=== PATIENT | male | born 1950 | race Caucasian/White ===

== ENCOUNTER 2022-05-14 05:51 | Observation (INO) ==
--- NOTE | 2022-03-19 15:28 | PAT Medication Instructions ---
Medication Instructions Date of Service March 19, 2022 Home Medications Medication Instructions Recorded atorvastatin 40 mg tablet 40 mg PO QAM 34 Days #34 tab 09/04/20 aspirin 81 mg chewable tablet 81 mg PO QAM atorvastatin 40 mg tablet 40 mg PO QAM cholecalciferol (vitamin D3) 25 mcg (1,000 unit) capsule (Vitamin D3) 25 mcg PO QAM vitamin B complex 1 tab PO QAM clopidogrel 75 mg tablet 75 mg PO QAM metoprolol succinate 25 mg tablet,extended release 24 hr 50 mg PO QAM nitroglycerin 0.4 mg sublingual tablet (Nitrostat) 0.4 mg SUBLINGUAL UD PRN Continue as directed nitroglycerin 0.4 mg sublingual tablet (Nitrostat) 0.4 mg SUBLINGUAL UD PRN (if needed) ASK your prescriber and surgeon clopidogrel 75 mg tablet 75 mg PO QAM (in order for spinal anesthesia, clopidogrel needs to be stopped 7 days before surgery. Please check if okay with doctor that prescribes this to you) DO NOT take the morning of surgery cholecalciferol (vitamin D3) 25 mcg (1,000 unit) capsule (Vitamin D3) 25 mcg PO QAM vitamin B complex 1 tab PO QAM Take morning of surgery With a small sip of water, OTHERWISE NOTHING TO EAT OR DRINK AFTER MIDNIGHT: aspirin 81 mg chewable tablet 81 mg PO QAM (continue as normal unless told otherwise by surgeon) atorvastatin 40 mg tablet 40 mg PO QAM metoprolol succinate 25 mg tablet,extended release 24 hr 50 mg PO QAM Other Notes If you have any questions please call us at [phone] or [phone] or [phone] or [phone]
--- NOTE | 2022-04-07 14:45 | Anesthesiology Consultation ---
Date of Service April 07, 2022 Assessment & Plan (1) Encounter for pre-operative examination: Chart Review Chart Review: Acceptable Risk for Surgery (pending cardio (04/14) and PCP (05/01) clearance and preop Covid testing results ) and Patient seen in Pre Admission Testing - Awaiting cardiac clearance (04/14/22) and PCP clearance (05/01/22) Per [facility] appt on 04/07/22, patient denies any recent travel or large group activities. Pt did test Covid positive with a home test 03/23/22 (had headache and sore throat- symptoms have since resolved). Pt is vaccinated for Covid. Did do PCR Covid test at [facility] appt on 04/08/22 due to positive home test on 03/23/22- patient Covid positive. Surgery scheduled for >30 days from Covid positive test but will be within 90 days- per protocol- no additional preop Covid test or Covid contact precautions are needed (patient and surgeon office made aware). Educated on importance of self quarantining, social distancing and wearing mask in public for the patient one week prior to surgery and after Covid testing done Pt seen by vascular surgery 12/24/21= seen for follow up- s/p R-TCAR as well as RCCA stent (transfemoral) 11/2020. Pt doing well. Recent duplex acceptable. No TIA/CVA symtpoms. Continue ASA and Plavix (extensive right carotid stenting). Follow up in one year Teaching & Discussion Pre-Anesthesia Teaching/Discussion Notes: Instructed NPO after midnight before surgery,except medications with 15 cc of water. Medication instructions provided according to the [facility] guidelines. History Surgery Operation Date: 05/14/22 08:00 Proposed Procedures p Left Total Knee Arthroplasty - Sabas Schroeder DO Height/Weight Height: 6 ft Weight: 96.1 kg Allergies Allergy/AdvReac Type Severity Reaction Status Date / Time Penicillins Allergy Unknown Unknown Verified 03/14/22 14:17 Medications Home Medications Medication Instructions Recorded Confirmed Last Taken aspirin 81 mg chewable tablet 81 mg PO QAM 09/04/20 03/14/22 09/04/20 324 atorvastatin 40 mg tablet 40 mg PO QAM 34 days #34 tabs 09/04/20 03/14/22 Unknown cholecalciferol (vitamin D3) 25 25 mcg PO QAM 09/04/20 03/14/22 Unknown mcg (1,000 unit) capsule (Vitamin D3) vitamin B complex 1 tab PO QAM 09/04/20 03/14/22 Unknown clopidogrel 75 mg tablet 75 mg PO QA 03/14/22 03/14/22 Unknown metoprolol succinate 25 mg 50 mg PO QAM 03/14/22 03/14/22 Unknown tablet,extended release 24 hr nitroglycerin 0.4 mg sublingual 0.4 mg sublingual UD PRN Chest Pain 03/14/22 03/14/22 Unknown tablet (Nitrostat) Past Medical History Medical History (Updated 04/07/22 @ 15:21 by Afua Mcclain PA-C) Anemia CAD (coronary artery disease) S/p 3 vessel CABG 09/21/2020, follows with [facility] cardio Carotid artery stenosis S/p R carotid stent 11/2020 (R-TCAR as well as RCCA stent (transfemoral)) 12/06/20- follows with [facility] Vascular Surgery; < 50% stenosis bilat 12/24/21 duplex History of high cholesterol HTN (hypertension) Exercise / Class Metabolic Activity II 4-5 Yardwork/Stairs/Walk up hill (one flight of stairs- no chest pain or SOB ) Past Family History Family History Mother Family history of diabetes mellitus Past Surgical History Surgical History (Updated 04/07/22 @ 15:21 by Afua Mcclain PA-C) History of cardiac cath JUL/AUG 2021...NO STENT(S), BYPASS SX History of colonoscopy History of heart bypass surgery triple, 09/2020, TOLBERT to LAD, SVG to OM1, SVG to RPL History of vascular surgery R-TCAR as well as RCCA stent (transfemoral) November 2020 Past Anesthesia History No Hx of Anesthesia Complications and No Family Hx of Anesthesia Complications History of PONV No Hx of PONV and No Hx of Motion Sickness Social History Smoking Status: Never smoker Do You Dip or Chew Tobacco: No (HX, QUIT 2019) Hx Alcohol Use: Yes Alcohol type: beer alcohol intake frequency: a few times a week Hx Substance Use: No substance use type: does not use Review of Systems Hx of snoring - no hx of sleep study Patient denies chest pain, shortness of breath, dyspnea on exertion, reflux, cough, wheezing, palpitations. No hx of seizures, stroke, [place]. No hx of blood clots or blood transfusions Physical Exam Vital Signs VITALS BP 138/78 P 75 TEMP 98.1 SP02 95% RESP 16 Constitutional no acute distress ENMT Mouth: + small oral opening; no TMJ clicking Thyromental Distance: < 3.5 Finger Breadths (3.0) Mallampati Class: II Neck neck extension not limited Respiratory normal respiratory effort; no respiratory distress Auscultation: lungs clear to auscultation bilaterally; no wheezes Cardiovascular Rate/Rhythm: regular rate and regular rhythm Heart Sounds: no murmur Vessels: no carotid bruit Heart sounds mildly diminished throughout Musculoskeletal Spine: no pain with cervical ROM Extremities: extremities normal to inspection Psychiatric Orientation: alert Lab Results Anesthesia Preop Results Results Anesthesia Widget: WBC 5.89 K/ul (4.8-10.8) 04/07/22 Hgb 13.7 g/dl (14.0-18.0) L 04/07/22 Hct 42.1 % (40.1-51.0) 04/07/22 Plt 190 K/uL (130-400) 04/07/22 Na 141 mmol/L (136-145) 04/07/22 K 4.1 mmol/L (3.5-5.1) 04/07/22 Cl 109 mmol/L (98-107) H 04/07/22 CO2 28 mmol/L (21-32) 04/07/22 BUN 21 mg/dl (6-23) 04/07/22 Creat 0.84 mg/dl (0.6-1.4) 04/07/22 Glucose Level 92 mg/dl (70-99(Fasting)) 04/07/22 PT 10.8 Seconds (9.0-12.0) 04/07/22 PTT 24.8 Seconds (21.0-31.0) 04/07/22 INR 1.0 (0.9-1.1) 04/07/22 HA1c 5.5 % (4.5-5.6) 04/07/22 Urine Color Yellow 04/07/22 Urine Appearance Clear (Clear) 04/07/22 Urine pH 5.5 (4.5-7.5) 04/07/22 Urine Specific [place] 1.024 (1.000-1.030) 04/07/22 Urine Protein Negative (Negative) 04/07/22 Urine Glucose (UA) Negative (Negative) 04/07/22 Urine Ketones Negative (Negative) 04/07/22 Urine Blood Negative (Negative) 04/07/22 Urine Nitrite Negative (Negative) 04/07/22 Urine Bilirubin Negative (Negative) 04/07/22 Urine Urobilinogen Negative (Negative) 04/07/22 Urine Leukocyte Esterase Negative (Negative) 04/07/22 Blood Type B Negative 04/07/22 Antibody Screen NEGATIVE 04/07/22 Testing Electrocardiogram Date: 04/07/22 Findings: + NSR @ (72bpm ) Normal EKG per cardio. Chest X-Ray Date: 04/07/22 Findings: + NAD Echocardiogram Date: 09/21/20 EF: 60-64% LV Function: normal RWMA: + none Other Findings: no LVH Aortic root mildly enlarged Aortic atherosclerosis is moderate Mild MR. Mild TR. Mild IA. Stress Test Date: 08/16/20 Type: exercise (ECHO ) Resting EF: 55-59% Resting LV Function: normal Valvular Disease: no significant valvular disease Echo is positive for inducible ischemia. LV wall motion is normal at rest. MPHR 101%. 9 METS achieved. Small sized apical wall motion abnormality with hypokinesis of the apical segments postexercise. Findings suggest ischemia in the distal LAD territory or perhaps distal RCA territory. Grade 1 DD. (Pt had subsequent cardiac cath- see below) Cardiac Catheterization Date: 09/04/20 Coronary Anatomy Dominant: Right Left Main (% Stenosis): Distal (10%) LAD (% Stenosis): Proximal (80%), Mid (60% diffuse disease extending to D3) and Distal (30%) D1 (% Stenosis): Normal (small vessel with mild diffuse disease) D2 (% Stenosis): Ostial (50%) D3 (% Stenosis): Ostial (10%) OM1 (% Stenosis): Normal OM2 (% Stenosis): Proximal (80%) and Mid (90%) L PL1 (% Stenosis): Mid (90% early-mid) RCA (% Stenosis): Proximal (20-30% diffuse), Mid (80%) and Distal (30-40% diffuse) R PDA (% Stenosis): Mid (70% mid, small vessel) R PL1 (% Stenosis): Normal (Pt had subsequent 3 vessel CABG) Other Testing Carotid testing 12/24/21= <50% stenosis to bilateral ICAs. Antegrade flow to both vertebral arteries
--- NOTE | 2022-04-18 08:40 | History & Physical Report ---
Date of Service April 18, 2022 date of surgery: 05/14/22 Procedure: Left Total Knee Arthroplasty Surgeon: Sabas Schroeder Assessment & Plan (1) Arthritis of knee, left: Plan: Presents for evaluation of continued left knee pain. He has failed previous conservative measures including cortisone injections as well as multiple Visco injections, he does limit his NSAID use due to being on aspirin and Plavix. He did have a history of cardiac bypass surgery as well as carotid endarterectomy. We discussed options, is felt conservative measures like to proceed with a Veronica patient-matched left total knee replacement at [facility], he is not a outpatient joint candidate. We will need cardiac clearance from Dr. Reeves prior to his surgery, we will plan on in-home therapy for first 2 weeks after surgery. The risks and benefits have been discussed including, but not limited to, risk of infection, nerve injury, stiffness, loss of motion, failure to improve, etc. Reasonable outcomes and options of treatment were discussed. An explanation of appropriate alternatives to the procedure that may be advantageous were discussed and their risks and benefits, as well as the risks and benefits of not proceeding with treatment. I offered to answer any additional inquiries concerning the treatment involved. All the patient's questions were answered. The patient is agreeable, understanding of the treatment plan and alternatives, and wishes to proceed with the treatment plan. History of Present Illness Chief Complaint: left knee pain Primary Care Provider: Lincoln Azevedo MD Mr Aguiar is a pleasant 71-year-old male presents for preop valuation prior to left total knee replacement. He is having pain in this knee for many years now which is gradually worsened, is now affecting his daily activities including walking standing going up and on steps. He has tried previous cortisone injection as well as viscosupplementation without relief. He tried oral anti- inflammatories and Tylenol. This point time is failed conservative measures like proceed with left total knee replacement Allergies Allergy/AdvReac Type Severity Reaction Status Date / Time Penicillins Allergy Unknown Unknown Verified 03/14/22 14:17 Home Medications Medication Instructions Recorded Confirmed Type aspirin 81 mg chewable tablet 81 mg PO QAM 09/04/20 03/14/22 History atorvastatin 40 mg tablet 40 mg PO QAM 34 days #34 tabs 09/04/20 03/14/22 Rx cholecalciferol (vitamin D3) 25 25 mcg PO QAM 09/04/20 03/14/22 History mcg (1,000 unit) capsule (Vitamin D3) vitamin B complex 1 tab PO QAM 09/04/20 03/14/22 History clopidogrel 75 mg tablet 75 mg PO QAM 03/14/22 03/14/22 History metoprolol succinate 25 mg 50 mg PO QAM 03/14/22 03/14/22 History tablet,extended release 24 hr nitroglycerin 0.4 mg sublingual 0.4 mg sublingual UD PRN Chest Pain 03/14/22 03/14/22 History tablet (Nitrostat) Past Med/Surg History Medical History Anemia CAD (coronary artery disease) S/p 3 vessel CABG 09/21/2020, follows with [facility] cardio Carotid artery stenosis S/p R carotid stent 11/2020 (R-TCAR as well as RCCA stent (transfemoral)) 12/06/20- follows with [facility] Vascular Surgery; < 50% stenosis bilat 12/24/21 duplex History of high cholesterol HTN (hypertension) Surgical History History of cardiac cath JUL/AUG 2021...NO STENT(S), BYPASS SX History of colonoscopy History of heart bypass surgery triple, 09/2020, TOLBERT to LAD, SVG to OM1, SVG to RPL History of vascular surgery R-TCAR as well as RCCA stent (transfemoral) November 2020 Family History Mother Family history of diabetes mellitus Social History Smoking Status: Never smoker Hx Alcohol Use: Yes Alcohol type: beer Hx Substance Use: No Preferred Language: Divehi Communication Ability: Effective Rigging Engineer Required: No Beliefs That Will Affect Care: None Current Living Situation: Spouse Feels Safe at Home: Yes Assistive Devices: Glasses Review of Systems Review of Systems: All systems reviewed & are unremarkable except as noted in HPI & below Constitutional: no fever, no chills and no sweats Respiratory: no cough and no dyspnea Cardiovascular: no chest pain, no dyspnea and no orthopnea Gastrointestinal: no abdominal pain, no nausea and no vomiting Musculoskeletal: as per Subjective / HPI Physical Exam Physical Exam: HT: 6ft WT: 96.1kg Constitutional: WD/WN, vitals as above no acute distress Respiratory: normal respiratory effort, lungs clear to auscultation no respiratory distress, no labored breathing and does not use accessory muscles Cardiovascular: RRR, no murmur, no edema Gastrointestinal (Abdomen): normal bowel sounds, soft, nontender, no hepatosplenomegaly Musculoskeletal: Knee: + knee abnormal to inspection (LEFT KNEE), + effusion (+1 effusion), + limited ROM of knee (ROM 0/3/110), + knee ROM with crepitation, + joint line tenderness (medial joint line) and + Freddie's sign positive; no deformity, no skin erythema, no ecchymosis, no valgus laxity, no varus laxity, anterior drawer test negative, Abraham's sign negative and pivot shift test negative Results & Data Results & Data ([facility]) Diagnostic Findings Left Knee X-ray: left knee series confirm advanced degenerative changes to the left knee, greatest medial compartments and patellofemoral joint, showing joint space narrowing, osteophyte formation and subchondral sclerosis. no acute bony pathology noted.
[2022-05-14] MEDS ORDERED: CeleBREX 200 MG CAP PO SCH (06:00)
[2022-05-14] MEDS ORDERED: TRANEXAMIC ACID / 0.7% NACL 1,000 MG/100 ML BAG IV SCH (06:00)
[2022-05-14] MEDS ORDERED: ROPIVACAINE 0.5% HCL/PF 150 MG, BUPIVACAINE 0.75% MPF 20 ML, EPINEPHrine 30MG/30ML (OR ... INSTIL SCH (06:00)
[2022-05-14] MEDS ORDERED: METOCLOPRAMIDE HCL 10 MG TABLET PO SCH (06:00)
[2022-05-14] MEDS ORDERED: FAMOTIDINE 20 MG TAB PO SCH (06:00)
[2022-05-14] MEDS ORDERED: ACETAMINOPHEN 500 MG TAB PO SCH (06:00)
[2022-05-14] MEDS ORDERED: GABAPENTIN 300 MG CAP PO SCH (06:00)
[2022-05-14] MEDS ORDERED: dexAMETHasone 4 MG TAB PO SCH (06:00)
[2022-05-14] MEDS ORDERED: TRANEXAMIC ACID 1,000 MG **IV Intra-op IV SCH (06:00)
[2022-05-14] MEDS ORDERED: VANCOMYCIN HCL 1,500 MG in SODIUM CHLORIDE 0.9% 500 ML IV SCH (06:00)
[2022-05-14] MEDS ORDERED: LR 500ML BOLUS, THEN 15ML/HR IV SCH (06:00)
[2022-05-14] MEDS ORDERED: BUPIVACAINE 0.5 % 5 MG/1 ML PF 10ML VIAL ONE (06:27)
[2022-05-14] MEDS ORDERED: ROPIVACAINE 0.5% 5 MG/ML 30 ML VIAL ONE (06:27)
[2022-05-14] MEDS ORDERED: TRANEXAMIC ACID / 0.7% NACL 1000MG/100ML BAG IV ONE (07:09)
--- NOTE | 2022-05-14 07:11 | History & Physical Bridge Note ---
Date of Service May 14, 2022 History & Physical Bridge Note I have examined the patient, reviewed the History & Physical and in the interval since the performance of the History & Physical I have noted the following changes of clinical significance: no changes noted
[2022-05-14] MEDS ORDERED: MIDAZOLAM HCL 1 MG/ML 2ML VIAL ONE (08:46)
[2022-05-14] MEDS ORDERED: fentaNYL citrate 100 MCG/2 ML VIAL IV PRN (09:02)
[2022-05-14] MEDS ORDERED: ePHEDrine sulfate 50 MG/ML AMP IV PRN (09:02)
[2022-05-14] MEDS ORDERED: ONDANSETRON INJ 2 MG/ML 2 ML VIAL IV PRN ×2 (09:02→13:49)
[2022-05-14] MEDS ORDERED: ATROPINE SULFATE 0.1 MG/ML 10ML SYR IV PRN (09:02)
[2022-05-14] MEDS ORDERED: ORTHO JOINT ANESTHETIC ONE (09:17)
--- NOTE | 2022-05-14 10:47 | Operative Report ---
Post Operative Report Pre & Post Diagnosis Knee osteoarthritis Operation Date: 05/14/22 09:00 Pre-Op Diagnosis: Left Post-Op Diagnosis: Left knee Osteoarthritis I identified the patient and participated in the time-out.: Yes Procedure Operation Date: 05/14/22 09:00 Actual Procedures p Left Total Knee Arthroplasty(Left)Utilizing Veronica [employer] persona patient matched size 10 standard femur tibia G 12 mm polyethylene 34 oval patella - Sabas Schroeder DO Surgeon Sabas Schroeder DO Society Editor VIRGINIE Holm Estimated Blood Loss 5 Findings Consistent with Post-Op Diagnosis Patient presents with severe end-stage tricompartmental degenerative joint disease nonresponsive to conservative management patient presents for left total knee arthroplasty eburnated bone [id number] marginal osteophyte subchondral cystic changes Specimens Bone and cartilage Drains Medium bore Hemovac Anesthesia Type MAC Spinal Regional Complications none Disposition Accompanied Patient To Recovery: No Disposition: Recovery Room Indications Patient presents with severe end-stage DJD no response to conservative management occluding physical therapy anti-inflammatories relative rest activity modification corticosteroid injection viscosupplementation above intraoperative findings were noted Description of Procedure After proper prepping and draping of the left lower extremity anterior midline incision was made over the region of the extensor extensor mechanism after meticulous hemostasis was obtained and maintained in subcutaneous tissues a medial parapatellar incision was made The patella was subluxed lateralward the medial lateral gutter were cleaned from any hypertrophic synovitis and scar t issue of the distal femoral block was placed and the distal femoral osteotomy cut was made subsequently the chamfers anterior and posterior osteotomy cuts were made utilizing the 4-in-1 block the tibia was subsequently subluxed anteriorward medial and ateral meniscal remnants were excised in their entirety remnants of the anterior and posterior cruciate ligaments were excised in their entirety excellent exposure of the proximal tibia was obtained the tibial osteotomy guide was placed on the proximal tibial osteotomy cut was made once again the knee was irrigated with copious amounts of sterile saline solution the patella was subsequently everted lateralward thickened scar tissue around the patella was removed the patella was subsequently cut utilizing a freehand technique and was drilled prepared for final preparation and placement of patella socially flexion-extension gaps were checked and the equal and symmetric trials were placed to the appropriate femoral and tibial trials with poly-spacer being placed for equal flexion and extension gaps and full range of motion including extension to 0 and flexion to 140 the trial components after having been taken to recovery range of motion was subsequently removed meticulous hemostasis was obtained and maintained subsequently a knee block injection of joint cocktail including ropivacaine 0.5% 150 mg. Bupivacaine 0.5% epinephrine 1-200,030 mL's toradol 30 mg dexamethasone 4 mg ketamine 10 mg clonidine 100 micrograms normal saline solution 30 mg was infiltrated into the soft tissues of the posterior knee medial lateral gutters and periosteal synovium special attention was paid to protect neurovascular structures at all times subsequently trial components having been removed the knee was irrigated with sterile saline solution. debris was removed the proximal tibia was subsequently prepared and was made ready for the placement of the tibial component tibial component was also cemented and tamped into position the femoral component was subsequently placed and cemented in the position the patellar component was subsequently cemented in position because hemostasis once again obtained and maintained wound having been thoroughly irrigated with debridement and debridement lavage was performed as well as a medial parapatellar incision closed with #1 Vicryl in interrupted fashion subcutaneous was closed with #2 Vicryl skin was closed with skin clips. PA-C was necessary for prepping and drapping as well as wound closure of deep fascia Sub cutaneous tissue and skin and was necessary for the case. A sterile compressive dressing was placed patient was taken to recovery in stable condition of report dictated by Alexandre I attest to the content of the Intraoperative Record and any orders documented therein. Any exceptions are noted below.Due to the complex nature of the procedure, the entire surgery was performed with the operational assistance of VIRGINIE Holm. The dental hygiene administrative assistant, under direct supervision, was involved in the actual performance of all aspects of the surgical procedure including hemostasis, tissue retraction and incision, instrument management, patient positioning, and wound closure. I attest to the content of the Intraoperative Record and any orders documented therein. Any exceptions are noted below.
[2022-05-14] MEDS ORDERED: PROPOFOL IV EMULSION 10 MG/ML 20 ML VIAL IV ONE (10:55)
[2022-05-14] MEDS ORDERED: ePHEDrine sulfate 50 MG/ML SYR ONE (10:55)
[2022-05-14] MEDS ORDERED: PHENYLEPHRINE 100MCG/ML 5ML SYR ONE (11:40)
--- NOTE | 2022-05-14 12:45 | XRay Report ---
TWO VIEWS LEFT KNEE CLINICAL HISTORY: Postoperative examination. FINDINGS: AP and crosstable lateral portable views of the left knee are obtained. A left knee arthrop lasty is in near anatomic alignment. There has been undersurface remodeling of the patella. No acute fracture is seen. There are expected postoperative changes around the knee including a surgical drain , soft tissue edema, and subcutaneous gas. IMPRESSION: Expected postoperative changes status post left knee arthroplasty. No acute fracture is s een. ACT 112: Negative or not required by law. Electronically signed by: Domo Willams M.D. 05/14/2022 12:44 PM
--- NOTE | 2022-05-14 13:16 | Anesthesiology Progress Note ---
Date of Service May 14, 2022 Anesthesia Post Procedure Vital Signs Vital Signs: Temp Pulse Pulse Resp BP Pulse Ox O2 Del Method 05/14/22 13:10 36 C L 75 14 125/73 96 Room Air 05/14/22 13:00 70 18 129/83 97 Room Air 05/14/22 12:50 78 13 127/59 L 98 Room Air 05/14/22 12:40 65 12 112/66 97 Room Air 05/14/22 12:30 63 15 116/63 97 Room Air 05/14/22 12:20 61 13 103/61 98 Room Air 05/14/22 12:10 64 21 101/47 L 99 Room Air 05/14/22 12:00 70 19 108/48 L 97 Room Air 05/14/22 11:50 65 12 95/64 L 96 Room Air 05/14/22 11:40 67 13 98/54 L 96 Room Air 05/14/22 11:30 36.1 C L 72 13 94/56 L 95 Room Air 05/14/22 06:34 36.5 C 74 18 145/85 H 96 Room Air Transfer of Care Handoff Completed per policy Notes Mental Status: alert / awake / arousable Patient Amnestic to Procedure: Yes Nausea / Vomiting: adequately controlled Pain: adequately controlled Airway Patency, RR, SpO2: stable & adequate BP & HR: stable & adequate Hydration State: stable & adequate Neuraxial Anesthesia: was administered and sensory block is resolving Anesthetic Complications: no major complications apparent and Pt Satisfied with anesthetic care
[2022-05-14] MEDS ORDERED: bisacodyL 10 MG SUPP PR PRN (13:49)
[2022-05-14] MEDS ORDERED: MAGNESIUM HYDROXIDE SUSP 30 ML UDC PO PRN (13:49)
[2022-05-14] MEDS ORDERED: NALOXONE HCL 0.4 MG/1 ML VIAL/CARP IV PRN (13:49)
[2022-05-14] MEDS ORDERED: diphenhydrAMINE Capsule 25 MG CAP PO PRN (13:49)
[2022-05-14] MEDS ORDERED: NITROGLYCERIN SL 0.4 MG/TAB TAB SL PRN (13:49)
[2022-05-14] MEDS ORDERED: HYDROmorphone INJ 1 MG/ML SYRINGE IV PRN (13:49)
[2022-05-14] MEDS ORDERED: METOCLOPRAMIDE HCL INJ 5 MG/ML 2 ML VIAL IV PRN (13:49)
[2022-05-14] MEDS: ACETAMINOPHEN 500 MG TAB PO SCH ×2 (14:28→21:00)
[2022-05-14] MEDS: SODIUM CHLORIDE 0.9% 1000ML 1,000 ML IV SCH (14:28)
[2022-05-14] MEDS: KETOROLAC TROMETHAMINE 15 MG/ML VIAL IV SCH ×2 (14:29→21:00)
[2022-05-14] MEDS: CLINDAMYCIN 600 MG in DEXTROSE 5% 50 ML IV SCH (17:46)
[2022-05-14] MEDS: DOCUSATE SODIUM 100 MG CAP PO SCH (21:00)
[2022-05-14] MEDS: SENNA 8.6 MG TAB PO SCH (21:48)
[2022-05-14] MEDS: oxyCODONE HCL IR 5 MG TAB (IMMEDIATE RELEASE) PO PRN (21:49)
[2022-05-15] MEDS: KETOROLAC TROMETHAMINE 15 MG/ML VIAL IV SCH ×2 (02:32→08:54)
[2022-05-15] MEDS: CLINDAMYCIN 600 MG in DEXTROSE 5% 50 ML IV SCH (02:32)
[2022-05-15] MEDS: SODIUM CHLORIDE 0.9% 1000ML 1,000 ML IV SCH (03:01)
[2022-05-15] MEDS: ACETAMINOPHEN 500 MG TAB PO SCH ×3 (06:24→22:06)
[2022-05-15 08:00] LABS: Hematocrit (blood only) 35.8 % (40.1-51.0); Hemoglobin 12.4 g/dl (14.0-18.0); Mean Corpuscular Hemoglobin 29.9 pg (25.0-34.0); Mean Corpuscular Hgb Conc 34.6 g/dL (32.0-36.0); Mean Corpuscular Volume 86.3 fL (80.0-100.0); Mean Platelet Volume 9.4 fL (9.4-12.4); Platelet Count 186 K/uL (130-400); RDW Coefficient of Variation 13.3 % (11.5-14.5); RDW Standard Deviation 41.5 fL (36.4-46.3); Red Blood Count 4.15 M/uL (4.63-6.08)
--- NOTE | 2022-05-15 08:34 | Orthopedic Progress Note ---
Date of Service May 15, 2022 Assessment & Plan (1) Arthritis of knee, left: Plan: Postop day 1 status post left total knee arthroplasty. PT/OT protocols. Weightbearing as tolerated. DVT prophylaxis-aspirin p.o. twice daily, SCDjuwan, ALLIE mathias. Pain management as written. BMP pending. DC planning-patient is planning for outpatient PT upon discharge. Admission and Anticipated Discharge Date Admission Date: May 14, 2022 Subjective Postop day 1 Patient sitting up in bed awake and alert. No complaints this morning. Minimal discomfort in the left knee. Denies shortness of breath, chest pain, lightheadedness. Physical Exam Physical Exam: Dressings are clean, dry, and intact. Calves are soft and nontender. Neurovascular is intact. Toes are mobile. He has good dorsiflexion and plantarflexion of the left foot. Hemovac drainage was 250 cc from the previous shift. Results & Data ([facility]) Vital Signs (Past 12 Hours) Vital Signs Temp Pulse Resp BP Pulse Ox O2 Del Method 05/15/22 02:34 36.6 C 66 15 146/80 H 97 Room Air 05/14/22 21:39 36.9 C 76 18 126/68 96 Laboratory Results Laboratory Results WBC 10.30 K/ul (4.8-10.8) 05/15/22 07:49 RBC 4.15 M/uL (4.63-6.08) L 05/15/22 07:49 Hgb 12.4 g/dl (14.0-18.0) L 05/15/22 07:49 Hct 35.8 % (40.1-51.0) L 05/15/22 07:49 MCV 86.3 fL (80.0-100.0) 05/15/22 07:49 MCH 29.9 pg (25.0-34.0) 05/15/22 07:49 MCHC 34.6 g/dL (32.0-36.0) 05/15/22 07:49 RDW Std Deviation 41.5 fL (36.4-46.3) 05/15/22 07:49 RDW Coeff of Kristin 13.3 % (11.5-14.5) 05/15/22 07:49 Plt Count 186 K/uL (130-400) 05/15/22 07:49 MPV 9.4 fL (9.4-12.4) 05/15/22 07:49 Impressions Knee X-Ray 05/14/22 11:29 TWO VIEWS LEFT KNEE CLINICAL HISTORY: Postoperative examination. FINDINGS: AP and crosstable lateral portable views of the left knee are obtained. A left knee arthroplasty is in near anatomic alignment. There has been undersurface remodeling of the patella. No acute fracture is seen. There are expected postoperative changes around the knee including a surgical drain, soft tissue edema, and subcutaneous gas. IMPRESSION: Expected postoperative changes status post left knee arthroplasty. No acute fracture is seen. ACT 112: Negative or not required by law. Electronically signed by: Domo Willams M.D. 05/14/2022 12:44 PM
[2022-05-15 08:36] LABS: BUN Creatinine Ratio 28.4 (10-20); Calcium 8.5 mg/dl (8.5-10.1); Creatinine Clr Calc Pharmacy 101.4 ml/min; Est GFR (African American) 104.4 ml/min; Potassium 4.2 mmol/L (3.5-5.1)
[2022-05-15] MEDS: DOCUSATE SODIUM 100 MG CAP PO SCH ×2 (08:47→20:06)
[2022-05-15] MEDS: CLOPIDOGREL BISULFATE 75 MG TAB PO SCH (08:47)
[2022-05-15] MEDS: CHOLECALCIFEROL 1,000 UNITS 25 MCG TAB PO SCH (08:47)
[2022-05-15] MEDS: METOPROLOL SUCC 50MG EXT REL TAB PO SCH (08:47)
[2022-05-15] MEDS: ATORVASTATIN 40 MG TAB PO SCH (08:47)
[2022-05-15] MEDS: MULTIVITAMIN TAB PO SCH (08:48)
[2022-05-15] MEDS ORDERED: ASPIRIN 81 MG CHEW PO SCH (09:00)
[2022-05-15] MEDS: ASPIRIN 81 MG CHEW PO SCH ×2 (13:41→20:06)
[2022-05-15] MEDS: VITAMIN B COMPLEX TAB PO SCH (13:42)
[2022-05-15] MEDS: SENNA 8.6 MG TAB PO SCH (20:06)
--- NOTE | 2022-05-16 03:18 | Urology Consultation ---
Date of Consultation May 16, 2022 Assessment & Plan (1) Urinary retention: Due to the patient's history of hypospadias I discussed with my attending physician Dr. Murphy the best course of action and he notes with the amount of urine noted on bladder scan it is reasonable to attempt to straight cath the p atient utilizing a 16 or 18 [place] coud catheter. After verbal consent from the patient the patient's penis was prepped and draped in sterile fashion and I attempted to straight cath the patient with a 16 [place] coud catheter. I was able to insert a coud catheter 1 to 2 inches before meeting resistance. I attempted this 2-3 times, however due to the concern of creating a false passage further attempts were aborted. Following attempt to straight cath the patient I asked the patient to attempt to void again and he was again able to void clear urine in excess of 100 cc. Following this void the patient did not note any significant suprapubic discomfort. Again discussed with my attending he feels it is reasonable to allow the patient to continue to void spontaneously particularly since that the volume of urine he is voiding appears to be increasing. Discussed with the patient that he may be having difficulty voiding partly in response to the anesthesia he received for his surgery and hopefully he will be able to void larger amounts as time goes by. The patient be reassessed again in the morning with further recommendations to follow. Supervising Physician Co-Signing Physician Notes I have discussed Mr. Aguiar' case with Angel Ang PA-C and agree with the above documentation. He has an elevated PVR but has not been having lower abdominal pain. Likely has some urethral stricture, may be related to his hypospadias. He is still voiding some urine. I suspect that he never truly voids to completion. Straight catheterization was unsuccessful. Since he was not uncomfortable and was still voiding some, we elected to hold off on catheter placement. Hopefully as he starts to mobilize and anesthesia continues to wear off he will start to void more to completion. History of Present Illness Reason for Consultation: Urinary retention Attending Physician: Sabas Schroeder, DO History of Present Illness This is a 72-year-old male who underwent a left knee replacement on 05/14/2022. I was asked to see the patient due to urinary retention. The patient reports that he had a history of an unspecified urologic procedure as a child. He could not provide any further details concerning this. Since his orthopedic procedure the patient has only been able to void small amounts of urine at approximately 25 cc. He has been bladder scanned and has been noted to have approximately 700 to 800 cc of urine remaining in his bladder. I did discuss with the nurse and throughout the course of this evening he has been able to void larger volumes in excess of 100 cc, but continues to have high postvoid residuals of approximately 600 to 800 cc. I visited with the patient at the bedside and at the time of my visit he currently denies any suprapubic discomfort unless pressure is applied to that area. He also denies any dysuria or hematuria. He denies any back or flank pain. It should be noted that nursing did have an order to perform a straight cath on this patient but multiple people on the nursing staff attempted to place a Serrato catheter to straight cath the patient without success. Attempts were made to contact the orthopedic service without success. The nursing staff was unable to contact the on-call hospitalist for the [facility] group who placed a urology consultation and requested that we assist with this problem. At the time of my interview the patient was resting comfortably in bed and he was in no distress. Allergies Allergy/AdvReac Type Severity Reaction Status Date / Time Penicillins Allergy Unknown Unknown Verified 05/14/22 06:29 Home Medications Medication Instructions Recorded Confirmed Type aspirin 81 mg chewable tablet 81 mg PO QAM 09/04/20 05/14/22 History cholecalciferol (vitamin D3) 25 25 mcg PO QAM 09/04/20 05/14/22 History mcg (1,000 unit) capsule (Vitamin D3) vitamin B complex 1 tab PO QAM 09/04/20 05/14/22 History clopidogrel 75 mg tablet (Plavix) 75 mg PO QAM 03/14/22 05/14/22 History metoprolol succinate 25 mg 50 mg PO QAM 03/14/22 05/14/22 History tablet,extended release 24 hr nitroglycerin 0.4 mg sublingual 0.4 mg sublingual UD PRN Chest Pain 03/14/22 05/14/22 History tablet (Nitrostat) atorvastatin 40 mg tablet (Lipitor) 40 mg PO QAM 05/14/22 05/14/22 History acetaminophen 500 mg tablet 1,000 mg PO Q8 14 days #84 tabs 05/15/22 Rx (Tylenol Extra Strength) aspirin 81 mg tablet,delayed 81 mg PO BID 30 days #60 tabs 05/15/22 Rx release (Ecotrin Low Strength) doxycycline hyclate 100 mg capsule 100 mg PO BID 14 days #28 caps 05/15/22 Rx oxycodone 5 mg tablet 5 mg PO Q4H PRN pain #30 tabs 05/15/22 Rx polyethylene glycol 3350 17 gram 17 g PO DAILY PRN constipation #5 05/15/22 Rx oral powder packet (Miralax) ea Patient History Medical History Anemia CAD (coronary artery disease) S/p 3 vessel CABG 09/21/2020, follows with [facility] cardio Carotid artery stenosis S/p R carotid stent 11/2020 (R-TCAR as well as RCCA stent (transfemoral)) 12/06/20- follows with [facility] Vascular Surgery; < 50% stenosis bilat 12/24/21 duplex History of high cholesterol HTN (hypertension) Surgical History History of cardiac cath JUL/AUG 2021...NO STENT(S), BYPASS SX History of colonoscopy History of heart bypass surgery triple, 09/2020, TOLBERT to LAD, SVG to OM1, SVG to RPL History of vascular surgery R-TCAR as well as RCCA stent (transfemoral) November 2020 Family History Mother Family history of diabetes mellitus Social History Smoking Status: Never smoker Do You Dip or Chew Tobacco: No (HX, QUIT 2019); Hx Alcohol Use: Yes Alcohol type: beer Hx Substance Use: No Preferred Language: Cymraes Communication Ability: Effective Sales Floor Associate Required: No Beliefs That Will Affect Care: None Current Living Situation: Spouse Other Information That Helps Us Care for You: No Feels Safe at Home: Yes Assistive Devices: Walker Review of Systems Constitutional: no fever and no chills Gastrointestinal: no abdominal pain, no nausea and no vomiting Genitourinary: + as per Subjective / HPI; no dysuria or no flank pain Physical Exam Gastrointestinal (Abdomen): Abdomen is soft, nonrigid, nondistended. There is no pain with palpation, however the patient did report some slight discomfort with palpation of the suprapubic region. Genitourinary: The patient's penis was examined and he did have a circumcised penis he also had what appeared to be a hypospadias. Results & Data ([facility]) Vital Signs (Past 12 Hours) Vital Signs Temp Pulse Resp BP Pulse Ox O2 Del Method 05/15/22 21:14 36.4 C L 63 18 125/71 98 05/15/22 16:00 36.6 C 66 20 122/65 98 Room Air PG Care Time/CCT Total # of Minutes Spent Total Time Spent with Patient: Total time spent is greater than 50% in coordination of care (as documented) at patient's floor/unit and/or counseling patient: Coding Level of Care Code 05752 Inpt Consult Level 2 Diagnoses Urinary retention R33.9
[2022-05-16] MEDS: ACETAMINOPHEN 500 MG TAB PO SCH ×2 (05:49→14:00)
--- NOTE | 2022-05-16 06:51 | Orthopedic Progress Note ---
Date of Service May 16, 2022 Assessment & Plan (1) Arthritis of knee, left: Plan: POD #2 s/p Left TKA pt/ot dvt proph with ALLIE/SCD/ASA plan for d/c home with OPPT, scheduled for [place] on Thursday. will d/c hemovac prior to d/c Admission and Anticipated Discharge Date Admission Date: May 14, 2022 Subjective POD # 2 s/p Left TKA Review of Systems Constitutional: no fever, no chills and no sweats Respiratory: no cough and no dyspnea Cardiovascular: no chest pain and no dyspnea Gastrointestinal: no abdominal pain, no nausea and no vomiting Physical Exam Physical Exam: Vital Signs Temp 36.4 C L 05/15/22 21:14 Pulse 63 05/15/22 21:14 Resp 18 05/15/22 21:14 BP 125/71 05/15/22 21:14 Pulse Ox 98 05/15/22 21:14 O2 Del Method 05/15/22 16:00 Intake & Output 05/15/22 05/15/22 05/16/22 06:59 18:59 06:59 Intake Total 1654 / 4188 240 / 240 Output Total 700 / 770 310 / 1460 1150 / 1460 Balance 954 / 3418 -70 / -1220 -1150 / -1220 Intake: IV 1054 / 1838 Clindamycin 60 0 mg In Dextrose 54 / 108 5% 50 ml @ 100 mls/hr IV Q8H PIETRO Rx#:[id number] Sodium Chlorid e 0.9% 1000ML 1, 1000 / 1000 000 ml @ 100 m ls/hr IV .Q10H PIETRO Rx#:[id number] Oral 600 / 600 240 / 240 Output: Urine 300 / 300 1000 / 1000 Drain Output 400 / 465 310 / 460 150 / 460 Hemovac 310 / 410 100 / 410 Left Knee 400 / 465 50 / 50 Musculoskeletal: left lower extremity: NVDI, calf SNT, negative allen sign. DP palpable, able to wiggle toes/ankle movement without difficulty. ZOË dressing clean dry and intact. expected post-operative bruising noted. Results & Data ([facility]) Vital Signs (Past 12 Hours) Vital Signs Temp Pulse Resp BP Pulse Ox 05/15/22 21:14 36.4 C L 63 18 125/71 98
--- NOTE | 2022-05-16 07:10 | Discharge Summary ---
Date of Service date of discharge: May 16, 2022 date of admission: 05/14/22 Admission HPI Per Admitting Provider Mr Aguiar is a pleasant 71-year-old male presents for preop valuation prior to left total knee replacement. He is having pain in this knee for many years now which is gradually worsened, is now affecting his daily activities including walking standing going up and on steps. He has tried previous cortisone injection as well as viscosupplementation without relief. He tried oral anti- inflammatories and Tylenol. This point time is failed conservative measures like proceed with left total knee replacement Principal Diagnosis left knee arthritis Discharge Exam Vital Signs Temp 36.4 C L 05/15/22 21:14 Pulse 63 05/15/22 21:14 Resp 18 05/15/22 21:14 BP 125/71 05/15/22 21:14 Pulse Ox 98 05/15/22 21:14 O2 Del Method 05/15/22 16:00 Intake & Output 05/15/22 05/16/22 05/16/22 18:59 06:59 18:59 Intake Total 240 / 240 Output Total 310 / 1460 1150 / 1460 Balance -70 / -1220 -1150 / -1220 Intake: Oral 240 / 240 Output: Urine 1000 / 1000 Drain Output 310 / 460 150 / 460 Hemovac 310 / 410 100 / 410 Left Knee 50 / 50 Musculoskeletal left knee: NVDI, calf SNT, negative allen sign. DP palpable, able to wiggle toes/ankle movement without difficulty. ZOË dressing clean dry and intact. expected post-operative bruising noted. Discharge Data Allergies Allergy/AdvReac Type Severity Reaction Status Date / Time Penicillins Allergy Unknown Unknown Verified 05/14/22 06:29 Consultations 05/16/22 02:57 Consult Urology Routine Procedures Performed Operation Date: 05/14/22 09:00 Actual Procedures p Left Total Knee Arthroplasty(Left) - Sabas Schroeder DO Ordered Studies 05/14/22 05:00 US - OR guided needle placemen Routine Hospital Course (1) Arthritis of knee, left: POD #2 s/p Left TKA pt/ot dvt proph with ALLIE/SCD/ASA plan for d/c home with OPPT, scheduled for [place] on Thursday. will d/c hemovac prior to d/c Total Time Total Time Spent Total Time Spent (In Minutes): 20 Discharge Plan Discharge Items Patient Disposition: Home - Self-Care Reason For Visit: Unilateral Primary Osteoarthritis, Left KNee Discharge Diagnosis: LEFT TOTAL KNEE REPLACEMENT Activity: Per Instructions section Lifting: Wait until after follow-up appointment Weightbearing Comment: WBAT WITH WALKER Non-emergency contact: Surgeon Call non-emergency contact if: you have any medication questions, your temperature is above 101, your wound has increased redness, your wound has increased drainage and your wound pain has increased Follow-up/Referrals: Sabas Schroeder DO [Surgeon] - (Follow-up with Dr. Schroeder in 2 weeks from the day of surgery for your first postoperative visit.) Sanford Flores MD [Primary Care Provider] - Diet: Regular Addtl Attending Provider Instructions: ACTIVITY RECOMMENDATIONS: SELF CARE INSTRUCTIONS AFTER TOTAL KNEE REPLACEMENT A. You may need to continue a physical therapy program after discharge from the hospital. There are several options available to you. Your doctor will assist you in selecting the best one for you. 1. An out-patient facility 2 to 3 times a week for therapy or home therapy. 2. Continue working on all exercises taught to you in the hospital. Your goals should be to increase bending of your knee to 90 degrees and beyond and to fully straighten your knee. B. You may progress at your own pace from walking with a walker or crutches to a cane; then to no assistive devices. C. Make walking a part of your daily routine. Be up as much as comfortable with rest periods throughout the day. Rest with leg elevation is very important. Use the ice wrap frequently for the first 3-4 weeks. D. There are no restrictions on activities. You may ride in a car, shop, participate in recovery collector and all social activities. E. Wear the long elastic stockings (ALLIE hose) 20 hours a day for 2 weeks after surgery. They can be removed several times a day for laundering and for a bath. F. You may shower, no tub baths until cleared by your doctor. SPECIAL CARE INSTRUCTIONS: VERY IMPORTANT TO READ AND REVIEW A. There are a few signs you need to watch for after you are home. Call [facility] if you notice any of the followin. Increased severe knee pain. Some pain is expected especially when you exercise. 2. Increased swelling in your leg or knee; pain or swelling of the calf muscle in either lower leg. 3. Any fluid drainage from the incision. 4. Shortness of breath or chest pain. B. Please call [facility] at if you have any concerns or questions about your operation or recovery. The doctor or his nurse will return your call promptly. C. You must take antibiotics before dental work, bladder, bowel or other surgery. Your doctor will provide you with a permanent care to carry describing this precaution. IMPORTANT: * REMEMBER TO TAKE ASPIRIN, 81 MG, TWICE DAILY FOR 4 WEEKS UNLESS OTHERWISE DIRECTED. THIS IS YOUR BLOOD THINNER. * HIGH RISK PATIENTS MAY BE PRESCRIBED A STRONGER BLOOD THINNER. THIS WILL BE PROVIDED AT DISCHARGE. * CALL IF INCREASED PAIN, REDNESS, DRAINAGE OR FEVER GREATER THAT 101. * WEAR ALLIE HOSE 20 HOURS PER DAY FOR 2 WEEKS. * ZOË Dressing- This is a large suction dressing covering your incision. This will help pull any excess drainage from the wound and allow your incision to heal properly. You may shower with this if you can keep the unit outside of the shower. If any bleeding or leakage is noted please call your doctor's of [place]. This will remain on your incision for 7 days and then should be removed. This can be done yourself or by the home nursing staff if applicable. The entire unit is disposable once removed. Once removed, keep incision clean and dry. If redness or drainage is noted, please call your surgeon. ONCE ZOË IS REMOVED, FOLLOW THESE INSTRUCTIONS: DERMABOND Prineo- This is a mesh tape dressing that is covered with glue. It should remain in place until the incision is properly healed, usually 10-14 days. This dressing is designed to naturally slough off. You may trim the excess mesh tape as it peels off. Incision may be briefly wet in a shower. Dry immediately by blotting with a clean, dry towel. Do not bath or swim until instructed by your doctor. Do not scratch, rub, or pick at the dressing. Do not apply any topical ointments or lotions until dressing is completely removed and/or instructed by your doctor. There may be a small piece of suture material at one end of your incision. Do not pull or trim this. If it is bothersome or catching on clothing, you may cover it with a band-aid. IF INCISION IS LEAKING THROUGH DRESSING, CALL THE OFFICE . FOLLOW UP VISIT: If appointment is not already scheduled: Please call [facility] to make a follow-up appointment for 2 weeks after your surgery at . Pending Studies at Discharge: No Stand-Alone Forms: My [facility], Smoking Cessation Medications and DC Order Prescriptions: New acetaminophen [Tylenol Extra Strength] 500 mg Tablet 1,000 mg PO Q8 14 Days Qty: 84 0RF doxycycline hyclate 100 mg capsule 100 mg PO BID 14 Days Qty: 28 1RF aspirin [Ecotrin Low Strength] 81 mg tablet,delayed release (DR/EC) 81 mg PO BID 30 Days Qty: 60 0RF polyethylene glycol 3350 [Miralax] 17 gram powder in packet 17 g PO DAILY PRN (Reason: constipation) Qty: 5 0RF oxycodone 5 mg tablet 5 mg PO Q4H MDD 6 PRN (Reason: pain) Qty: 30 0RF Continued vitamin B complex Tablet Extended Release 1 tab PO QAM cholecalciferol (vitamin D3) [Vitamin D3] 25 mcg (1,000 unit) Capsule 25 mcg PO QAM clopidogrel [Plavix] 75 mg Tablet 75 mg PO QAM nitroglycerin [Nitrostat] 0.4 mg tablet, sublingual 0.4 mg sublingual UD PRN (Reason: Chest Pain) Label Comments: NEVER HAD TO USE metoprolol succinate 25 mg tablet extended release 24 hr 50 mg PO QAM atorvastatin [Lipitor] 40 mg tablet 40 mg PO QAM Discontinued aspirin 81 mg Tablet,Chewable 81 mg PO QAM Discharge Orders: Discharge Order (Routine); Ordered 05/16/22 Ordered By: David Fry Admission Data Admit Date/Time: 05/14/22 11:29 Attending Provider: Sabas Schroeder Admit Provider: Sabas Schroeder Primary Care Provider: Sanford Flores Other Providers: Damion Murphy
[2022-05-16] MEDS: ASPIRIN 81 MG CHEW PO SCH (09:08)
[2022-05-16] MEDS: MULTIVITAMIN TAB PO SCH (09:09)
[2022-05-16] MEDS: CHOLECALCIFEROL 1,000 UNITS 25 MCG TAB PO SCH (09:10)
[2022-05-16] MEDS: METOPROLOL SUCC 50MG EXT REL TAB PO SCH (09:11)
[2022-05-16] MEDS: CLOPIDOGREL BISULFATE 75 MG TAB PO SCH (09:11)
[2022-05-16] MEDS: VITAMIN B COMPLEX TAB PO SCH (09:11)
[2022-05-16] MEDS: DOCUSATE SODIUM 100 MG CAP PO SCH (09:11)
[2022-05-16] MEDS: ATORVASTATIN 40 MG TAB PO SCH (09:12)
--- NOTE | 2022-05-16 09:16 | Urology Progress Note ---
Date of Service May 16, 2022 Assessment & Plan (1) Urinary retention: Plan: - Plan of care reviewed with Dr. Chi, urologist environmental inspector. - Pt POD #2 s/p L TKA with urinary retention. - Catheter was unable to be placed overnight. - Continues to void small amounts with elevated post void residuals > 600 mL. - Will continue to monitor without catheter for now and recheck a PVR this afternoon. - Start Tamsulosin and recommend continue once daily upon discharge. - If PVR continues to be elevated, Dr. Chi will place a catheter. - If catheter is placed, he can be discharged with catheter and maintain for 7- 10 days. - Will arrange outpatient follow-up with our service for further evaluation and possible voiding trial if catheter is required. Attending note: Independently evaluated and assessed and examined x2 on May 16, 2022. Agree with note as above as well as with the consultation overnight with the overnight nurse practitioner Michele Ang. Patient had developed issues with retention and incomplete emptying. Was voiding multiple times through the day. Patient was given tamsulosin after assessment this morning. Patient did notice improvement of voiding and was voiding regularly 100 cc however maintained a postvoid residual of over 600 with each void. Patient was increasing hydration and was tolerating activity plan was to have patient discharged home. Patient was further evaluated and though his voiding issues had drastically improved he was still unable to empty significantly and was concerned about possible issues with the incomplete emptying. Extensive review of issues including possible contributing factors such as prostate enlargement issues. Discussed postoperative retention and issues related to bowel and bladder function after surgery. Discussed decreased mobility. Discussed issues with bowels also affecting the bladder. Also extensively reviewed the patient's complicated history. Had a complex repair in his infancy likely around ages 4 or 5 appears to have had a likely flip flap procedure or other complex reconstruction of the urethra. 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 Patient also had a transurethral plate that appeared to have some areas of indented tissue that likely were causing some issues with the attempted catheterization last night. At approximately 1725 PM the patient was reevaluated and found still to be incompletely emptying. On the second assessment it was discussed further and patient elected to undergo a catheterization. I personally placed the catheter. The patient had been prepped and draped in the normal sterile fashion. The patient had been identified and confirmed. A 16 Serbian coud catheter was then placed utilizing a topical lidocaine jelly injected into the reconstructive meatus. This was located on the distal penile shaft within the foreskin away from the multiple areas of indented tissue along the glans. 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 The catheter was able to be placed without issues. Patient did appear to have some restriction going through the prostate likely due to prostate enlargement. No other areas of significant narrowing or stricture were appreciated in the catheter path without major issue. Approximately 550 cc of clear yellow urine immediately drained. Patient was still draining some urine with the catheter in place. The balloon had been elevated and the catheter situated and attached to the bag. Discussed extensively with patient. We will have patient go home with both a bed and a leg bag. Will have a prescription for tamsulosin sent for the patient and he should continue this. Did recommend patient taking the medication at night and did warn patient of possible lightheadedness or dizziness when for starting the medication. We will plan to continue the patient on the medication for further evaluation. We will have patient follow-up in the office in approximately 1 to 2 weeks for catheter removal. Assuming patient continues to improve with ambulation as well as bowel function. At that time we will discuss further evaluation likely will need set up for cystoscopy to further assess the patient's urethral tract. We will also need to discuss different options for management as patient is concerned about possible episodes of retention and incomplete emptying with other interventions or other illnesses. Did discuss this possibility extensively. Patient's complicated medical and surgical history was reviewed and summarized above. Although recent imaging as well as patient's current lab work including renal function and his current vitals were all reviewed. Everything was in a stable range. We will plan to have patient follow-up as above. Greater than 65 minutes with the 2 independent evaluations today. Also additional time spent in the complicated catheter placement. Admission and Anticipated Discharge Date Admission Date: May 14, 2022 Subjective Patient is POD #2 s/p L TKA. Urology consulted overnight for post op urinary retention. He is voiding small amounts with elevated post void residuals. Serrato/straight cath was unable to be placed overnight. RN reports that he voided about 100 mL this AM, PVR was 628 mL. Subjectively doing well. No abdominal or suprapubic pain. Notes mild bladder pressure. Notes urinary frequency, no dysuria. No nausea or vomiting. No fever or chills. Review of Systems Constitutional: as per Subjective / HPI Gastrointestinal: as per Subjective / HPI Genitourinary: + as per Subjective / HPI Physical Exam Constitutional: well developed and well nourished; no acute distress Respiratory: no respiratory distress and no labored breathing Gastrointestinal (Abdomen): Inspection/Auscultation: abdomen normal to inspection; abdomen not distended Musculoskeletal: Head/Neck/Chest: normocephalic and head atraumatic Left lower extremity with bashir bandages and knee brace Neurologic: moves all extremities and awake Psychiatric: Orientation: alert and oriented x 3 Results & Data ([facility]) Vital Signs (Past 12 Hours) Vital Signs Temp Pulse Pulse Resp BP Pulse Ox O2 Del Method 05/16/22 08:58 83 129/77 05/16/22 07:35 36.6 C 75 20 122/77 97 Room Air PG Care Time/CCT Total # of Minutes Spent Total Time Spent with Patient: Total time spent is greater than 50% in coordination of care (as documented) at patient's floor/unit and/or counseling patient: Coding Level of Care Code 47894 Subseq Hosp Care Lvl 2 Diagnoses Urinary retention R33.9
[2022-05-16] MEDS: oxyCODONE HCL IR 5 MG TAB (IMMEDIATE RELEASE) PO PRN (10:41)
[2022-05-16] MEDS ORDERED: TAMSULOSIN HCL 0.4 MG CAP PO ONE (11:54)
== END 2022-05-16 19:44 | disposition home or self-care (01) ==
LOC: 3E 05:51 → ASU 05:51